=== PATIENT | male | born 2000 | race Caucasian/White ===

== ENCOUNTER 2022-02-21 10:22 | Emergency (ER) | payer OTHER ==
[~2022-02-21] VITALS: Ht 170.2 cm; Wt 73.0 kg
[2022-02-21] MEDS ORDERED: LORAZEPAM 2MG/ML CPJ IV ONE (11:45)
[2022-02-21] MEDS ORDERED: SODIUM CHLORIDE 0.9% 1,000 ML IV ONE (11:45)
[2022-02-21] MEDS ORDERED: ASPIRIN 81MG TABLET PO ONE (11:45)
[2022-02-21 13:04] LABS: BASOPHILS % 0.4 % (0.0-2.0); EOSINOPHILS % 0.1 % (0.0-5.0); HEMATOCRIT. 43.5 % (42.0-52.0); HEMOGLOBIN. 14.7 g/dL (14.0-18.0); LYMPHOCYTES % 19.9 % (20.0-50.0); MEAN CORPUSCULAR HEMOGLOBIN 31.1 pg (28.0-32.0); MEAN CORPUSCULAR VOLUME 91.9 fL (80.0-94.0); MEAN PLATELET VOLUME 8.9 fl (7.4-10.4); MONOCYTES % 8.8 % (2.0-8.0); NEUTROPHILS % 70.8 % (40.0-76.0); PLATELET 270 x1000/uL (130-400); RED BLOOD CELL COUNT 4.74 mill/uL (4.7-6.1); RED CELL DISTRIBUTION WIDTH 13.5 % (11.6-14.6)
[2022-02-21 13:13] LABS: CHLORIDE 106 mEq/L (98-107)
[2022-02-21 13:17] LABS: ETHANOL BLOOD < 10 mg/dL
[2022-02-21 14:42] LABS: METHADONE URINE SCREEN NEGATIVE (NEGATIVE); OPIATES URINE SCREEN NEGATIVE (NEGATIVE)
[2022-02-21 14:44] LABS: *AMPHETAMINES SCREEN URINE PRESUMTIVE POSITIVE (NEGATIVE); PHENCYCLIDINE URINE SCREEN NEGATIVE (NEGATIVE)
[2022-02-21 14:45] LABS: *BARBITURATES SCREEN URINE NEGATIVE (NEGATIVE); *BENZODIAZEPINES SCREEN URINE NEGATIVE (NEGATIVE); *COCAINE SCREEN URINE NEGATIVE (NEGATIVE)
[2022-02-21 14:49] LABS: CANNABINOID URINE SCREEN NEGATIVE (NEGATIVE)
[2022-02-21 15:36] VITALS: BP 121/79
== END 2022-02-21 11:43 | disposition home or self-care (01) ==
LOC: ER 10:22
DX: T43.621A Poisoning by amphetamines, accidental (unintentional), initial encounter (principal); R00.2 Palpitations; F17.210 Nicotine dependence, cigarettes, uncomplicated; Y92.018 Other place in single-family (private) house as the place of occurrence of the external cause
CPT/HCPCS: 36415; 71045; 80053; 80305; 80320; 84484; 85025; 93005; 96360; 96361; 99285; J7030; G0480

== ENCOUNTER 2024-01-20 03:02 | Emergency (ER) | payer SELFPAY ==
[~2024-01-20] VITALS: Ht 177.8 cm; Wt 66.0 kg
[2024-01-20 03:05] VITALS: O2SAT 100
[2024-01-20 04:21] LABS: BASOPHILS % 0.4 % (0.0-2.0); EOSINOPHILS % 0.3 % (0.0-5.0); HEMOGLOBIN. 15.3 g/dL (14.0-18.0); LYMPHOCYTES % 28.8 % (20.0-50.0); MEAN CORPUSCULAR HEMOGLOBIN 32.9 pg (28.0-32.0); MEAN CORPUSCULAR HGB CONC 34.7 g/dL (31.0-37.0); MEAN CORPUSCULAR VOLUME 94.8 fL (80.0-94.0); MEAN PLATELET VOLUME 9.3 fl (7.4-10.4); MONOCYTES % 6.4 % (2.0-8.0); NEUTROPHILS % 64.1 % (40.0-76.0); PLATELET 197 x1000/uL (130-400); RED BLOOD CELL COUNT 4.65 mill/uL (4.7-6.1); RED CELL DISTRIBUTION WIDTH 13.3 % (11.6-14.6); WHITE BLOOD COUNT 7.5 x1000/uL (4.5-11.0)
[2024-01-20 04:34] LABS: ALANINE AMINOTRANSFERASE 480 IU/L (10-49); ALBUMIN 4.9 g/dL (3.2-4.8); ASPARTATE AMINOTRANSFERASE 267 IU/L (<34); BILIRUBIN TOTAL 0.8 mg/dL (0.1-1.0); CALCIUM 9.3 mg/dL (8.7-10.4); CARBON DIOXIDE 25 mEq/L (21-32); CHLORIDE 105 mEq/L (98-107); POTASSIUM 3.6 mEq/L (3.5-5.1); PROTEIN TOTAL 9.7 g/dL (6.0-8.3); SODIUM 137 mEq/L (136-145); UREA NITROGEN BLOOD 6 mg/dL (9-23)
[2024-01-20 04:44] LABS: GLUCOSE 329 mg/dL (70-105)
[2024-01-20] MEDS: MORPHINE SULFATE 4 MG/ML INJ (FOR IV/IM USE) IV STA (05:12)
[2024-01-20] MEDS: ONDANSETRON HCL 4MG/2ML INJ IV STA (05:13)
[2024-01-20] MEDS: SODIUM CHLORIDE 0.9% 1,000 ML IV ONE (05:13)
[2024-01-20 05:21] LABS: INR 1.1; PROTHROMBIN TIME 11.7 sec (9.6-11.0)
[2024-01-20 05:43] LABS: *AMPHETAMINES SCREEN URINE PRESUMPTIVE POSITIVE (NEGATIVE); *BARBITURATES SCREEN URINE NEGATIVE (NEGATIVE); *BENZODIAZEPINES SCREEN URINE NEGATIVE (NEGATIVE); *COCAINE SCREEN URINE PRESUMPTIVE POSITIVE (NEGATIVE); CANNABINOID URINE SCREEN NEGATIVE (NEGATIVE); ECSTASY MDMA SCREEN URINE NEGATIVE (NEGATIVE); METHADONE URINE SCREEN Neg (NEGATIVE); OPIATES URINE SCREEN NEGATIVE (NEGATIVE); PHENCYCLIDINE URINE SCREEN NEGATIVE (NEGATIVE)
[2024-01-20 05:59] LABS: CLARITY URINE CLEAR (CLEAR); COLOR URINE YELLOW (YELLOW); PROTEIN URINE NEGATIVE (NEGATIVE); SPECIFIC GRAVITY URINE 1.017 (1.005-1.030)
[2024-01-20 06:00] LABS: GLUCOSE URINE 3+ (NEGATIVE); KETONES URINE NEGATIVE (NEGATIVE); NITRITE URINE NEGATIVE (NEGATIVE); OCCULT BLOOD URINE NEGATIVE (NEGATIVE); UROBILINOGEN URINE 0.2 E.U./dL (0.2-1.0)
[2024-01-20 06:01] LABS: LEUKOCYTE ESTERASE URINE NEGATIVE (NEGATIVE)
[2024-01-20 06:27] VITALS: BP 117/72; PULSE 90; RESP 18; TEMP 97.7
[2024-01-20] MEDS ORDERED: IOHEXOL-300 100 ML BOTTLE ONE (07:09)
[2024-01-20 07:38] LABS: RBC URINE NONE SEEN /hpf (0-2); SQUAMOUS EPITHELIAL CELL URINE NONE SEEN /lpf (RARE/1+); WBC URINE 0-2 /hpf (0-2)
[2024-01-20 07:39] LABS: BACTERIA URINE NONE SEEN
== END 2024-01-20 08:14 | disposition left against medical advice (07) ==
LOC: ER 03:02 → CANBEDREQ 01-22 09:51
DX: R10.11 Right upper quadrant pain (principal); R10.13 Epigastric pain; R74.01 Elevation of levels of liver transaminase levels; F14.10 Cocaine abuse, uncomplicated; F15.10 Other stimulant abuse, uncomplicated
CPT/HCPCS: 80053; 80305; 81003; 80320; 83605; 83690; 85025; 85610; 36415; 74177; 93005; 96374; 96375; 99285; Q9967; J2405; J2270; J7030; Z7610 ×4; G0480

== ENCOUNTER 2024-05-11 20:42 | Emergency (ER) | payer SELFPAY ==
[~2024-05-11] VITALS: Ht 175.3 cm; Wt 70.0 kg
[2024-05-11 21:01] VITALS: BP 125/87; PULSE 136; RESP 16; TEMP 98.1; O2SAT 98
== END 2024-05-11 23:45 | disposition left against medical advice (07) ==
LOC: ER 20:42
DX: R10.9 Unspecified abdominal pain (principal); R11.2 Nausea with vomiting, unspecified; Z53.21 Procedure and treatment not carried out due to patient leaving prior to being seen by health care provider

== ENCOUNTER 2025-08-02 20:32 | Inpatient (IN) | payer SELFPAY ==
[~2025-08-02] VITALS: Ht 170.2 cm; Wt 73.5 kg
[2025-08-02 20:34] VITALS: O2SAT 97
[2025-08-02 21:31] LABS: BASOPHILS % 0.9 % (0.0-2.0); EOSINOPHILS % 1.6 % (0.0-5.0); HEMATOCRIT. 39.1 % (42.0-52.0); HEMOGLOBIN. 12.9 g/dL (14.0-18.0); LYMPHOCYTES % 28.1 % (20.0-50.0); MEAN PLATELET VOLUME 9.0 fl (7.4-10.4); MONOCYTES % 11.0 % (2.0-8.0); NEUTROPHILS % 58.4 % (40.0-76.0); PLATELET 139 x1000/uL (130-400); RED BLOOD CELL COUNT 4.23 mill/uL (4.7-6.1); RED CELL DISTRIBUTION WIDTH 14.8 % (11.6-14.6)
[2025-08-02] MEDS: SODIUM CHLORIDE 0.9% 1,000 ML IV ONE (21:31)
[2025-08-02 21:42] LABS: INR 1.1
[2025-08-02 21:49] LABS: CREATININE 0.8 mg/dL (0.6-1.3)
[2025-08-02 21:50] LABS: TROPONIN I HIGH SENSITIVITY < 4 ng/L (3.0-53); UREA NITROGEN BLOOD < 5 mg/dL (9-23)
[2025-08-02 21:51] LABS: ASPARTATE AMINOTRANSFERASE 159 IU/L (<34)
[2025-08-02 21:52] LABS: BILIRUBIN DIRECT 0.3 mg/dL (<=3.0); BILIRUBIN TOTAL 0.9 mg/dL (0.1-1.0); PROTEIN TOTAL 8.9 g/dL (6.0-8.3)
[2025-08-02] MEDS: FAMOTIDINE 20MG/2ML VIAL IV ONE (22:23)
[2025-08-02] MEDS: ONDANSETRON HCL 4MG/2ML INJ IV ONE (22:23)
[2025-08-02] MEDS: PANTOPRAZOLE SODIUM 40 MG/VIAL IV ONE (22:23)
[2025-08-02] MEDS ORDERED: ACETAMINOPHEN 325MG TABLET PO PRN (23:15)
[2025-08-02] MEDS ORDERED: IPRATROPIUM/ALBUTEROL 0.5-3(2.5)MG/3ML NEB HHN PRN (23:15)
[2025-08-02] MEDS ORDERED: LORAZEPAM 2MG/ML UD SYRINGE IV PRN ×2 (23:15)
[2025-08-02] MEDS ORDERED: CLONIDINE 0.1MG TABLET PO PRN (23:15)
[2025-08-02] MEDS ORDERED: CHLORDIAZEPOXIDE 25MG CAPSULE PO PRN (23:15)
[2025-08-02] MEDS ORDERED: DEXTROSE 50% WATER 50ML SYRINGE IV PRN (23:15)
[2025-08-02] MEDS ORDERED: ONDANSETRON HCL 4MG/2ML INJ IV PRN (23:15)
[2025-08-02] MEDS: PANTOPRAZOLE 80 MG in SODIUM CHLORIDE 0.9% 100 ML IV SCH (23:42)
[2025-08-02] MEDS: LACTATED RINGERS 1,000 ML IV ONE (23:43)
[2025-08-02 23:50] LABS: PHOSPHORUS 3.7 mg/dL (2.5-4.9)
[2025-08-02 23:54] LABS: FOLIC ACID (FOLATE) SERUM 14.26 ng/mL (>5.38); VITAMIN B12 SERUM 459 pg/mL (211-911)
[2025-08-03 02:22] VITALS: BP 100/59; PULSE 78; RESP 17; TEMP 36.696; TEMP 36.7; O2SAT 100
[2025-08-03] MEDS: FOLIC ACID 1 MG, THIAMINE HCL 100 MG, MVI, ADULT NO.1 10 ML in DEXTROSE 5% WATER 1,000 ML IV ONE (04:34)
[2025-08-03 05:52] LABS: CLARITY URINE CLEAR (CLEAR); COLOR URINE YELLOW (YELLOW); GLUCOSE URINE 3+ (NEGATIVE); KETONES URINE NEGATIVE (NEGATIVE); LEUKOCYTE ESTERASE URINE NEGATIVE (NEGATIVE); NITRITE URINE NEGATIVE (NEGATIVE); OCCULT BLOOD URINE NEGATIVE (NEGATIVE); PH URINE 6.0 (4.5-8.0); PROTEIN URINE NEGATIVE (NEGATIVE); SPECIFIC GRAVITY URINE 1.016 (1.005-1.030); UROBILINOGEN URINE 0.2 E.U./dL (0.2-1.0)
[2025-08-03 06:15] LABS: BASOPHILS % 0.9 % (0.0-2.0); EOSINOPHILS % 2.0 % (0.0-5.0); HEMATOCRIT. 35.0 % (42.0-52.0); HEMOGLOBIN. 11.5 g/dL (14.0-18.0); LYMPHOCYTES % 32.4 % (20.0-50.0); MEAN PLATELET VOLUME 9.0 fl (7.4-10.4); MONOCYTES % 13.6 % (2.0-8.0); NEUTROPHILS % 51.1 % (40.0-76.0); PLATELET 109 x1000/uL (130-400); RED BLOOD CELL COUNT 3.79 mill/uL (4.7-6.1); RED CELL DISTRIBUTION WIDTH 14.8 % (11.6-14.6)
[2025-08-03 06:36] LABS: *AMPHETAMINES SCREEN URINE NEGATIVE (NEGATIVE)
[2025-08-03 06:38] LABS: *BENZODIAZEPINES SCREEN URINE NEGATIVE (NEGATIVE)
[2025-08-03 06:40] LABS: *BARBITURATES SCREEN URINE NEGATIVE (NEGATIVE); *COCAINE SCREEN URINE NEGATIVE (NEGATIVE); CANNABINOID URINE SCREEN NEGATIVE (NEGATIVE); ECSTASY MDMA SCREEN URINE NEGATIVE (NEGATIVE); METHADONE URINE SCREEN NEGATIVE (NEGATIVE); OPIATES URINE SCREEN NEGATIVE (NEGATIVE); PHENCYCLIDINE URINE SCREEN NEGATIVE (NEGATIVE)
[2025-08-03 06:41] LABS: T4 FREE 0.84 ng/dL (0.89-1.76)
[2025-08-03 06:44] LABS: CREATININE 0.7 mg/dL (0.6-1.3); TRIGLYCERIDE 100 mg/dL (0-150)
[2025-08-03 06:45] LABS: LDL CHOLESTEROL 116 mg/dL (5-100); UREA NITROGEN BLOOD < 5 mg/dL (9-23)
[2025-08-03] MEDS: BLOOD SUGAR DIAGNOSTIC STRIP TEST SCH (06:52)
[2025-08-03 07:17] LABS: RBC URINE 0-2 /hpf (0-2); WBC URINE 0-2 /hpf (0-2)
[2025-08-03 07:18] LABS: BACTERIA URINE NONE SEEN; SQUAMOUS EPITHELIAL CELL URINE NONE SEEN /lpf (RARE/1+)
[2025-08-03 07:40] VITALS: BP 111/66; PULSE 91; RESP 18; TEMP 37.1; O2SAT 98
[2025-08-03] MEDS ORDERED: LORAZEPAM 2MG/ML UD SYRINGE IV PRN ×2 (08:00)
[2025-08-03] MEDS: INSULIN LISPRO 100 UNITS/ML SUBCUT SCH (08:10)
[2025-08-03] MEDS: FOLIC ACID 1MG TABLET PO SCH (08:45)
[2025-08-03] MEDS: THIAMINE HCL 100 MG/1 ML 2ML VIAL IM SCH (08:45)
[2025-08-03] MEDS: PANTOPRAZOLE SODIUM 40 MG/VIAL IV SCH (08:45)
[2025-08-03] MEDS: MULTIVITAMINS,THER W-MINERALS TABLET PO SCH (08:45)
[2025-08-03] MEDS: POTASSIUM CHLORIDE 20MEQ/PACKET PO NR (11:06)
[2025-08-03] MEDS: ACETAMINOPHEN 325MG TABLET PO PRN (11:07)
[2025-08-03 11:54] VITALS: BP 128/76; PULSE 90; RESP 20; TEMP 37.2; O2SAT 97
[2025-08-03] MEDS: GABAPENTIN 100MG CAPSULE PO SCH (14:00)
[2025-08-03 16:00] VITALS: BP 139/79; PULSE 85; RESP 19; TEMP 37.4; O2SAT 98
[2025-08-03] MEDS ORDERED: FERROUS SULFATE 325MG TABLET PO SCH (18:10)
[2025-08-03] MEDS ORDERED: TRAZODONE HCL 50MG TABLET PO SCH (21:00)
[2025-08-05] MEDS ORDERED: THIAMINE HCL 100MG TABLET PO SCH (09:00)
== END 2025-08-03 18:35 | disposition left against medical advice (07) | DRG 241 ==
LOC: ER 20:32 → 7WST 22:44 → EDBEDREQTM 22:56 → EDBEDREQ 22:56 → ENRESERV 08-03 01:58
PROVIDERS: ADMIT Internal Medicine; ATTEND Internal Medicine
DX: K29.71 Gastritis, unspecified, with bleeding (principal); R45.851 Suicidal ideations; D64.9 Anemia, unspecified; F10.229 Alcohol dependence with intoxication, unspecified; F41.9 Anxiety disorder, unspecified; Z53.29 Procedure and treatment not carried out because of patient's decision for other reasons; R74.8 Abnormal levels of other serum enzymes; E11.9 Type 2 diabetes mellitus without complications; Z79.84 Long term (current) use of oral hypoglycemic drugs; Y90.8 Blood alcohol level of 240 mg/100 ml or more
CPT/HCPCS: 36415; 71045; 74176; 80048; 80061; 80076; 80305; 80320; 81003; 82140; 82607; 82746; 82962; 83036; 83540; 83550; 83735; 84100; 84425; 84439; 84443; 84484; 85025; 86850; 86900; 93005; 96361; 96365; 96375; 99285; J1308; J2405; J2470; J3411; J3490; J7030; J7050; J7070; G0480